=== PATIENT | female | born 1970 ===

== ENCOUNTER 2022-09-07 06:23 | Day surgery (SDC) | payer OTHER | END 2022-09-07 15:50 | disposition home or self-care (01) | LOC: AMB-ENDOS 06:23 | PROVIDERS: ATTEND Colon & Rectal Surgery | DX: K62.5 Hemorrhage of anus and rectum (principal); K63.5 Polyp of colon; K62.1 Rectal polyp; K64.8 Other hemorrhoids; Z20.822 Contact with and (suspected) exposure to COVID-19 ==